=== PATIENT | male | born 1940 | race Caucasian/White ===

== ENCOUNTER 2017-10-05 09:40 | Emergency (ER) | payer MEDICARE, BC ==
[~2017-10-05] VITALS: Ht 177.8 cm; Wt 91.6 kg
[~2017-10-05 09:40] MED LIST: ASPIRIN EC81 MG PO; AUGMENTIN 500-1 EACH PO; BYSTOLIC10 MG PO; GABAPENTIN300 MG PO; GABAPENTIN800 MG PO; GLIMEPIRIDE2 MG PO; HYDROCHLOROTH12.5 M1 PO; LEVOXYL200 MCG PO; LOSARTAN POTASS25 MG PO; METFORMIN HCL500 MG PO; ONGLYZA5 MG PO; PHENERGAN25 MG/1 ML PO; TYLENOL WITH C1 EACH PO
--- NOTE | 2017-10-05 12:12 | Diagnostic Imaging Report ---
History: Neck pain radiating down to shoulder Comparison studies: MRI of the cervical spine 03/28/2014 Technique: Axial images were obtained through the cervical region. Coronal and sagittal images reconstructed from the axial data. Intravenous contrast: None Findings: Atlantoaxial articulation: Intact Alignment: Straightening of the normal lordosis. No scoliosis. Cervicomedullary junction: No abnormalities. Patent foramen magnum. Soft tissues: No gross abnormalities. Vertebrae: No fractures, neoplasm or infection. Degenerative changes: C2-C3: Disc degeneration with decreased intervertebral space. Posterior disc osteophyte complex with patent canal and foramina C3-C4: Disc degeneration with decreased intervertebral space, endplate irregularities and sclerotic changes. Diffuse posterior disc osteophyte complex and bilateral uncinate process hypertrophy results in mild canal stenosis, mild right and moderate left foraminal narrowing C4-C5: Disc degeneration with decreased intervertebral space. Bilateral uncinate process hypertrophy and right facet hypertrophy results in mild canal stenosis and mild right foraminal narrowing C5-C6: Disc degeneration with decreased intervertebral space and sclerotic changes. Diffuse disc osteophyte complex, bilateral uncinate process hypertrophy and facet hypertrophy results in moderate canal stenosis and severe bilateral foraminal narrowing C6-C7: Disc degeneration with decreased intervertebral space and endplate sclerotic changes. Right central disc osteophyte complex, bilateral cerebral hypertrophy and facet hypertrophy results in mild canal stenosis and mild bilateral foraminal narrowing C7-T1: Patent canal and foramina Incidental finding: Atherosclerotic changes of the carotid bulbs IMPRESSION: No acute spinal abnormality. Moderate degenerative canal stenosis and severe bilateral foraminal narrowing at C5-6, stable from previous MR accounting for differences in technique. Moderate degenerative foraminal narrowing at C3-4 on the left. Mild foraminal narrowing at other levels as described above. Other degenerative changes as described above. Signed by: DR Juan Ham M.D. on 10/05/2017 12:09 PM
[2017-10-05 12:27] VITALS: BP 153/98
[2017-10-05] MEDS ORDERED: ULTRAM50 MG PO (12:41)
== END 2017-10-05 12:52 | disposition home or self-care (01) ==
LOC: ER 09:40
DX: M54.2 Cervicalgia (principal); S13.4XXA Sprain of ligaments of cervical spine, initial encounter; M54.12 Radiculopathy, cervical region; M48.02 Spinal stenosis, cervical region
CPT/HCPCS: 72125; 99283

== ENCOUNTER 2017-11-02 06:25 | Observation (INO) | payer MEDICARE, BC ==
[2017-11-01 10:44] LABS: BASOPHILS % 0.6 % (0.0-1.0); EOSINOPHILS # (AUTO) 0.1 (0.0-0.4); EOSINOPHILS % 2.1 % (0.0-6.0); HEMATOCRIT 42.3 % (38.2-49.6); LYMPHOCYTES # (AUTO) 1.8 (1.0-3.2); LYMPHOCYTES % 27.1 % (18.0-39.1); MEAN CORPUSCULAR HGB CONC 33.1 g/dL (31-35); MEAN CORPUSCULAR VOLUME 84.6 fL (81-99); MONOCYTES # (AUTO) 0.4 (0.2-0.8); MONOCYTES % 5.8 % (4.4-11.3); NEUTROPHILS # (AUTO) 4.2 (2.1-6.9); NEUTROPHILS % 63.6 % (38.7-80.0); PLATELET COUNT 170 x10e3/uL (140-360); RED CELL DISTRIBUTION WIDTH 12.8 % (11.7-14.4)
[2017-11-01 10:54] LABS: INR 1.2; PARTIAL THROMBOPLASTIN TIME 28.4 seconds (23.8-35.5); PROTHROMBIN TIME 14.3 seconds (11.9-14.5)
[2017-11-01 11:00] LABS: ANION GAP 13.4 mmol/L (8-16); BLOOD UREA NITROGEN 13 mg/dL (7-26); BUN/CREATININE RATIO 13 (6-25); CALCIUM 9.3 mg/dL (8.4-10.2); CARBON DIOXIDE 25 mmol/L (22-29); CHLORIDE 98 mmol/L (98-107); EST GLOMERULAR FILTRATION RATE > 60 ML/MIN (60-); GLUCOSE 242 mg/dL (74-118); POTASSIUM 4.4 mmol/L (3.5-5.1); SODIUM 132 mmol/L (136-145)
--- NOTE | 2017-11-01 11:01 | Diagnostic Imaging Report ---
PROCEDURE: X-RAY CHEST, TWO VIEWS COMPARISON: The report for a chest radiograph from 07/28/2015 is available for review.. INDICATIONS: PREOPERATIVE CHEST XRAY FOR CERVICAL SPINE SURGERY FINDINGS: The lungs are well-inflated. Calcified granulomata in the upper lung zones. No focal airspace consolidation, pleural effusion, or pneumothorax. Tortuous thoracic aorta with rightward tracheal deviation. Normal heart size. No overt pulmonary edema. No acute osseous abnormality. Level degenerative disc changes of the thoracic spine. Surgical clips project over the right upper quadrant of the abdomen, presumably related to prior cholecystectomy. CONCLUSION: No acute cardiopulmonary abnormality. Dictated by: Davide Patterson M.D. on 11/01/2017 at 11:08 Electronically approved by: Davide Patterson M.D. on 11/01/2017 at 11:08
[~2017-11-02] VITALS: Ht 177.8 cm; Wt 93.0 kg
[~2017-11-02 06:25] MED LIST changes: +Gabapentin PO; +LOSARTAN-HCTZ1 EACH; +MULTI-VITAMIN1 EACH; +NEXIUM; +ULTRAM50 MG PO
[2017-11-02] MEDS ORDERED: BACITRACIN 50,000 UNIT VIAL ONE (06:37)
[2017-11-02] MEDS ORDERED: BUPIVACAINE 0.5%/EPI 30 ML SDV INJ ONE (06:37)
[2017-11-02] MEDS ORDERED: THROMBIN FOR SOLN 5,000 UNIT VIAL ONE (06:37)
[2017-11-02] MEDS ORDERED: GELATIN SPONGE SZ 100 ONE (06:37)
[2017-11-02] MEDS ORDERED: CEFAZOLIN SOD 1 GM VIAL ONE (06:59)
[2017-11-02] MEDS ORDERED: INSULIN REGULAR, HUMAN 100 UNIT/1 ML 3ML VIAL ONE ×2 (07:13→11:24)
[2017-11-02] MEDS ORDERED: ACETAMINOPHEN 1000 MG/100 ML 100 ML IV ONE (07:23)
[2017-11-02] MEDS ORDERED: LIDOCAINE HCL (LTA) 4 ML SOLN ONE (07:23)
[2017-11-02] MEDS ORDERED: ONDANSETRON HCL INJ 2 MG/ML VIAL IV PRN (10:00)
[2017-11-02] MEDS ORDERED: MORPHINE SULFATE 5 MG/ML VIAL IM PRN (10:00)
[2017-11-02] MEDS ORDERED: CARISOPRODOL 350 MG TAB PO PRN (10:00)
[2017-11-02] MEDS ORDERED: OXYCODONE/ACETAMINOPHEN 5-325 1 EACH TABLET PO PRN (10:00)
[2017-11-02] MEDS ORDERED: HYDROMORPHONE 2MG/ML 2 MG/ML ML IV PRN (10:00)
[2017-11-02] MEDS ORDERED: MAGNESIUM/ALUMINUM/SIMETHICONE 30 ML UDC PO PRN (10:00)
[2017-11-02] MEDS ORDERED: PROMETHAZINE HCL (IM) 25 MG/ML VIAL IM PRN (10:00)
[2017-11-02] MEDS ORDERED: ACETAMINOPHEN 325 MG TAB PO PRN (10:00)
--- NOTE | 2017-11-02 10:29 | Operative Report ---
DATE OF PROCEDURE: November 02, 2017 PREOPERATIVE DIAGNOSIS: C4-C5 and C5-C6 spondylosis with radiculopathy, M50.120. POSTOPERATIVE DIAGNOSIS: C4-C5 and C5-C6 spondylosis with radiculopathy, M50.120. PROCEDURES 1. C4-C5 anterior cervical diskectomy and microsurgical osteophyte resection and allograft fusion . 2. C5-C6 anterior cervical diskectomy and microsurgical osteophyte resection and allograft fusion, . 3. Preparation of tricortical iliac crest allograft, [id number]. 4. C4-C5 and C5-C6 anterior cervical plating with Synthes CSP plate, [id number]. ANESTHESIA: General. INDICATIONS: The patient is a 77-year-old man who presents with C4-C5 and C5-C6 spondylosis and cervical spinal stenosis, and was taken to the operating room for a 2-level anterior cervical decompression and fusion. PROCEDURE: After induction of anesthesia, the patient was placed on the operating table in the supine position. The right side of the neck was prepped and draped in a sterile fashion. The fluoroscopic C-arm was positioned in cross-table lateral orientation. A transverse incision was created on the right side of the neck superimposed on the C5 vertebral body as determined by fluoroscopy. The platysma was divided in line with the incision. A subplatysmal dissection was carried out. An avascular plane of dissection was developed. The sternocleidomastoid muscle was followed medial to the carotid sheath to the anterior border of the cervical spine. The deep cervical fascia was opened. The esophagus was retracted to the left. The attachments of the longus coli muscles to the anterolateral aspects of vertebral bodies of C4, C5 and C6 were divided. The anterior longitudinal ligament was resected. Carson posts were inserted into C4 and C6, and the Carson distractor was used to distract the disk space. The anterior annulus of the disk was incised with a #11 blade, and the contents of the disk were thoroughly evacuated with angled curettes and pituitary rongeurs. The posterior osteophytes were meticulously drilled with a 2 mm cutting bur on a high-speed drill until they were completely removed. The posterior annulus of the disk, herniated disk material and the posterior longitudinal ligament were resected layer by layer until the dura was fully exposed and decompressed. The medial aspects of the uncinate processes were resected bilaterally to further expose and decompress the origins of the corresponding nerve roots. After satisfactory decompression had been achieved, the end-plates were prepared for fusion. Two pieces of tricortical iliac crest allograft were cut to size and shapes of the disk spaces and were inserted into the spaces under distraction of fluoroscopic guidance. The distraction was released. The distraction posts were removed. A Synthes CSP variable type anterior cervical plate measuring 34 mm in height was selected and affixed to the vertebral bodies of C4, C5 and C6 with 3 pairs of 14 x 4.35 mm screws. Each screw hole was first drilled and tapped under lateral fluoroscopic guidance. Each screw was locked with the appropriate locking screws. An excellent construct was obtained. The wound was copiously irrigated with Bacitracin solution. Meticulous hemostasis was secured. Retractor was removed. The platysma was closed with 3-0 Vicryl sutures. The skin was closed with 4-0 Monocryl sutures in a subcuticular fashion. Steri-Strips and a dressing were applied. The patient was awakened, extubated and taken to the postanesthesia care unit in stable condition. No intraoperative complications were encountered. Estimated blood loss was 30 mL. Job#: [id number] KARLIE
[2017-11-02] MEDS ORDERED: FENTANYL CITRATE/PF 100MCG/2 ML INJ ONE ×2 (10:35→19:18)
[2017-11-02] MEDS ORDERED: ONDANSETRON HCL INJ 2 MG/ML VIAL ONE ×2 (10:52→16:17)
[2017-11-02] MEDS ORDERED: METOCLOPRAMIDE HCL 10 MG/2ML VIAL ONE (11:14)
[2017-11-02] MEDS ORDERED: MORPHINE SULFATE 2 MG/ML SYR ONE ×2 (11:14→12:20)
[2017-11-02] MEDS: LACTATED RINGER'S 1,000 ML IV SCH ×3 (11:33→22:43)
[2017-11-02 13:00] VITALS: BP_SYST 156; BP_SYST 167; BP_DIAS 85; BP_DIAS 91
[2017-11-02 13:13] VITALS: BP 167/85
[2017-11-02] MEDS ORDERED: CEFAZOLIN SOD 1 GM/D5W 50ML 50 ML IV SCH (14:00)
[2017-11-02] MEDS ORDERED: SEVOFLURANE INHAL SOLN 250 ML PEN BTL ONE (16:17)
[2017-11-02] MEDS ORDERED: ROCURONIUM BROMIDE 10 MG/ML 5ML VIAL ONE (16:17)
[2017-11-02] MEDS ORDERED: PROPOFOL IV EMULSION 10 MG/ML 20 ML VIAL ONE (16:17)
[2017-11-02] MEDS ORDERED: LIDOCAINE HCL 2% LOCAL INJ 5 ML SDV VIAL INJ ONE (16:17)
[2017-11-02] MEDS ORDERED: DEXAMETHASONE SOD PHOS INJ 4 MG/ML VIAL ONE (16:17)
[2017-11-02] MEDS ORDERED: NEOSTIGMINE 5 MG/5ML SYR ONE (16:17)
[2017-11-02] MEDS ORDERED: GLYCOPYRROLATE INJ 1MG/ 5 ML SYR ONE (16:17)
[2017-11-02 16:42] VITALS: BP 162/86
[2017-11-02] MEDS ORDERED: GABAPENTIN 200 MG PO SCH (17:00)
[2017-11-02] MEDS ORDERED: OMEPRAZOLE 20 MG CAP PO SCH (17:00)
[2017-11-02] MEDS: GLIMEPIRIDE 2 MG TAB PO SCH (17:45)
[2017-11-02] MEDS: METFORMIN HCL 500 MG TAB PO SCH (17:45)
[2017-11-02] MEDS: CEFAZOLIN SOD 1 GM VIAL IV SCH ×2 (17:45→23:47)
[2017-11-02] MEDS: PANTOPRAZOLE SOD 40 MG TABEC PO SCH (17:45)
[2017-11-02] MEDS: GABAPENTIN 100 MG CAP PO SCH (17:46)
[2017-11-02] MEDS: LOSARTAN POTASSIUM 100 MG TAB PO SCH (17:46)
[2017-11-02 20:00] VITALS: BP 164/89
[2017-11-02] MEDS ORDERED: ZOLPIDEM TARTRATE 5 MG TAB PO PRN (21:00)
[2017-11-03] VITALS: BP 142/82
[2017-11-03 00:11] VITALS: BP 164/89
[2017-11-03 04:00] VITALS: BP 154/86
--- NOTE | 2017-11-03 05:58 | Diagnostic Imaging Report ---
C-SPINE 2 VIEWS AP LATERAL Comparison: CT from 10/05/2017 Clinical history: Status post cervical spine surgery Findings: C-collar is in place. Visualization through C6 on lateral view. Straightening of the normal cervical lordosis with slight reversal at C2-C4, unchanged. Status post interval C4-C6 ACDF. Degenerative changes worse at C3-4. Expected prevertebral soft tissue swelling status post recent surgery. Impression: Postsurgical changes status post C4-6 ACDF. Signed by: Dr Lupe Lane MD on 11/03/2017 5:55 AM
[2017-11-03] MEDS ORDERED: LEVOTHYROXINE SODIUM 100 MCG TAB PO SCH (06:00)
[2017-11-03 07:20] VITALS: BP 160/97
[2017-11-03] MEDS: CEFAZOLIN SOD 1 GM VIAL IV SCH (07:50)
[2017-11-03] MEDS: METFORMIN HCL 500 MG TAB PO SCH (07:50)
[2017-11-03] MEDS: PANTOPRAZOLE SOD 40 MG TABEC PO SCH (07:50)
[2017-11-03] MEDS: GLIMEPIRIDE 2 MG TAB PO SCH (07:50)
[2017-11-03 08:50] VITALS: BP 160/97
[2017-11-03] MEDS: GABAPENTIN 100 MG CAP PO SCH (08:50)
[2017-11-03] MEDS: LOSARTAN POTASSIUM 100 MG TAB PO SCH (08:50)
[2017-11-03] MEDS ORDERED: NEBIVOLOL 10 MG TAB PO SCH (09:00)
[2017-11-03] MEDS ORDERED: MULTIVITAMINS/MINERALS TAB PO SCH (09:00)
[2017-11-03] MEDS ORDERED: LEVOTHYROXINE SODIUM 200 MCG PO SCH (09:00)
[2017-11-03] MEDS ORDERED: NORCO 7.5-3251 EACH PO (09:41)
[2017-11-03 10:10] VITALS: BP 157/94
== END 2017-11-03 10:15 | disposition home or self-care (01) ==
LOC: OR 06:25 → PACU V 09:50 → MED/SURG 12:58
PROVIDERS: ADMIT Neurological Surgery; ATTEND Neurological Surgery
DX: M50.121 Cervical disc disorder at C4-C5 level with radiculopathy (principal); E11.9 Type 2 diabetes mellitus without complications; E03.9 Hypothyroidism, unspecified; I10 Essential (primary) hypertension; R12 Heartburn; Z96.643 Presence of artificial hip joint, bilateral; Z96.651 Presence of right artificial knee joint; Z88.7 Allergy status to serum and vaccine; Z01.810 Encounter for preprocedural cardiovascular examination; Z01.812 Encounter for preprocedural laboratory examination; Z01.811 Encounter for preprocedural respiratory examination
CPT/HCPCS: 20931; 22551; 22552; 22845; 36415 ×3; 71046; 72040; 77003; 80048; 82948 ×2; 85025; 85610; 85730; 86850; 86900; 88304; 93005; 96361; G0378 ×2; J0690 ×2; J1100; J2001; J2270; J2405; J2550; J2765; J3490; J7120; S0164 ×2

== ENCOUNTER 2018-06-24 07:50 | Emergency (ER) | payer MEDICARE, BC ==
[~2018-06-24] VITALS: Ht 177.8 cm; Wt 86.2 kg
[~2018-06-24 07:50] MED LIST changes: +NORCO 7.5-3251 EACH PO
--- OUTSIDE RECORDS SUMMARY | 2018-06-24 07:54 | XMS REPORT | Clinical Summary ---
Author Author [facility] Organization [facility] Address Unknown Phone Unavailable Care Team Providers Care Clinical Exercise Physiologist Name Role Phone Asked, No Pcp PCP Unavailable Allergies No Known Allergies Medications End Date Status Medication Sig Dispensed Refills Start Date Active glimepiride (AMARYL) 2 MG Take 2 mg by 0 tablet mouth daily before breakfast. Active levothyroxine (SYNTHROID, Take 200 mcg 0 LEVOXYL) 200 mcg tablet by mouth every morning. Active losartan-hydrochlorothiaz Take 1 tablet 0 tish (HYZAAR) 50-12.5 mg by mouth per tablet daily. Active metFORMIN (GLUCOPHAGE) Take 1,000 mg 0 1,000 mg tablet by mouth 2 (two) times a day with meals. Active aspirin (ECOTRIN LOW Take 81 mg by 0 STRENGTH) 81 MG enteric mouth daily. coated tablet Active esomeprazole (NexIUM) 20 Take 20 mg by 0 MG capsule mouth daily before breakfast. Active nebivolol (BYSTOLIC) 5 MG Take 5 mg by 0 tablet mouth daily. Active gabapentin (NEURONTIN) Take 100 mg 0 100 mg capsule by mouth 3 (three) times a day. Active nctrm-3m-dfd-epa-fish oil Take by 0 1,000-1,400 mg mouth. capsule,delayed release(DR/EC) Active MULTIVIT-MINERALS/FERROUS Take by 0 FUM (MULTI VITAMIN ORAL) mouth. Active meloxicam (MOBIC) 15 mg Take 1 tablet 30 tablet 0 tablet (15 mg total) 7 by mouth daily. Active diclofenac (VOLTAREN) 1 % Apply 500 g 1 gel topically 4 9 (four) times a day. Apply 1-2 grams to affected area 3-4 times daily. Active Problems Not on file Encounters Care Team Description Date Type Specialty Eric Galeana PA Stress fracture of left foot with routine healing, subsequent encounter (Primary Dx); Osteoarthritis of midfoot, left 04/20/2018 Office Visit Orthopedic Surgery Eric Galeana PA Stress fracture of left foot with routine healing, subsequent encounter (Primary Dx); Osteoarthritis of midfoot, left; Type 2 diabetes mellitus without complication, unspecified long-term insulin use status 10/17/2017 Office Visit Orthopedic Surgery after 06/23/2017 Family History Medical History Relation Name Comments Diabetes Mother Relation Name Status Comments Mother Social History Date Tobacco Use Types Packs/Day Years Used Quit: 07/12/1986 Former Smoker Smokeless Tobacco: Never Used Alcohol Use Drinks/Week oz/Week Comments No Sex Assigned at Date Recorded Not on file Industry Job Start Date Occupation Not on file Not on file Not on file Travel End Travel History Travel Start No recent travel history available. Last Filed Vital Signs Not on file Plan of Treatment Care Team Description Date Type Specialty Eric Galeana PA [address] [place] [address] [place] [id number] [phone] 07/19/2018 Office Visit Orthopedic Surgery Health Maintenance Due Date Last Done Comments DIABETIC RETINAL EYE EXAM 1940 DIABETIC FOOT EXAM 05/23/1949 URINE MICROALBUMIN 05/23/1949 SHINGLES VACCINES (#1) 05/23/1989 65+ PNEUMOCOCCAL VACCINE 05/23/2004 (1 of 2 - PCV13) PNEUMOCOCCAL 05/23/2004 POLYSACCHARIDE VACCINE AGE 65 AND OVER INFLUENZA VACCINE 09/27/2018 Procedures Comments Procedure Name Priority Date/Time Associated Diagnosis XR FOOT 3+ VW LEFT Routine 04/20/2018 Stress fracture of left 11:10 AM IP ARCHITECT foot with routine healing, subsequent encounter Osteoarthritis of midfoot, left XR FOOT 3+ VW LEFT Routine 10/17/2017 Stress fracture of left 9:49 AM CDT foot with routine healing, subsequent encounter after 06/23/2017 Results * XR Foot 3+ Vw Left (04/20/2018 11:10 AM IP ARCHITECT) Only the most recent of 2 results within the time period is included. Narrative Performed At [facility] There is been a bit more cystic change along the navicular cuneiform joints and TMT joints.Some progressive forefoot abduction and lateral drift of the midfoot noted on the AP view compared to his last films. Along the longitudinal arch there is a bit more flattening noted.No acute fractures. Performing Organization Address City/State/Zipcode Phone Number [facility] [address] [place] [address] after 06/23/2017 Insurance Payer Benefit Subscriber ID Type Phone Address Plan / Group MEDICARE MEDICARE xxxxxxxxxx Medicare [place], [place] PART A AND B BCBS ANTHEM xxxxxxxxxxxx [facility] Advance Directives Patient has advance care planning documents on file. For more information, raisa mejia contact: Yasmani Alcantar [address] [place] [address]
[2018-06-24] MEDS ORDERED: VALACYCLOVIR500 MG PO (08:42)
[2018-06-24] MEDS ORDERED: PREDNISONE20 MG PO (08:42)
[2018-06-24] MEDS ORDERED: EYE DROP TEARS15 ML OP (08:44)
[2018-06-24 08:53] VITALS: BP 123/99
== END 2018-06-24 09:08 | disposition home or self-care (01) ==
LOC: ER 07:50
DX: G51.0 Bell's palsy (principal)
CPT/HCPCS: 99282

== ENCOUNTER 2018-12-12 19:57 | Inpatient (IN) | payer MEDICARE, BC ==
[~2018-12-12] VITALS: Ht 177.8 cm; Wt 88.0 kg
[~2018-12-12 19:57] MED LIST changes: +EYE DROP TEARS15 ML OP; -NEXIUM; +NEXIUM PO; +PREDNISONE20 MG PO; +VALACYCLOVIR500 MG PO
[2018-12-12] MEDS ORDERED: ACETAMINOPHEN 1000 MG/100 ML IV STA (20:03)
[2018-12-12] MEDS ORDERED: ONDANSETRON HCL INJ 2MG/ML 2ML 2 MG/ML VIAL IV STA (20:03)
[2018-12-12] MEDS ORDERED: ASPIRIN 81 MG CHEW TAB PO ONE (20:15)
[2018-12-12 20:20] LABS: BASOPHILS # (AUTO) 0.1 (0.0-0.1); BASOPHILS % 0.5 % (0.0-1.0); EOSINOPHILS # (AUTO) 0.3 (0.0-0.4); EOSINOPHILS % 1.9 % (0.0-6.0); HEMATOCRIT 36.5 % (38.2-49.6); HEMOGLOBIN 11.8 g/dL (14.0-18.0); LYMPHOCYTES # (AUTO) 1.2 (1.0-3.2); LYMPHOCYTES % 8.7 % (18.0-39.1); MEAN CORPUSCULAR HEMOGLOBIN 26.6 pg (28-32); MEAN CORPUSCULAR HGB CONC 32.3 g/dL (31-35); MEAN CORPUSCULAR VOLUME 82.4 fL (81-99); MONOCYTES # (AUTO) 0.6 (0.2-0.8); MONOCYTES % 4.2 % (4.4-11.3); NEUTROPHILS # (AUTO) 11.6 (2.1-6.9); NEUTROPHILS % 83.8 % (38.7-80.0); PLATELET COUNT 386 x10e3/uL (140-360); RED BLOOD COUNT 4.43 x10e6/uL (4.3-5.7); RED CELL DISTRIBUTION WIDTH 14.4 % (11.7-14.4)
[2018-12-12 20:38] LABS: ALANINE AMINOTRANSFERASE 15 IU/L (0-55); ALBUMIN 3.3 g/dL (3.5-5.0); ALKALINE PHOSPHATASE 102 IU/L (40-150); ANION GAP 14.1 mmol/L (8-16); BLOOD UREA NITROGEN 15 mg/dL (7-26); BUN/CREATININE RATIO 16 (6-25); CALCIUM 9.9 mg/dL (8.4-10.2); CARBON DIOXIDE 23 mmol/L (22-29); CHLORIDE 100 mmol/L (98-107); CREATINE KINASE 56 IU/L (30-200); CREATININE, SERUM 0.94 mg/dL (0.72-1.25); EST GLOMERULAR FILTRATION RATE > 60 ML/MIN (60-); GLUCOSE 155 mg/dL (74-118); POTASSIUM 4.1 mmol/L (3.5-5.1); SODIUM 133 mmol/L (136-145)
[2018-12-12 20:43] LABS: INFLUENZAE A&B ANTIGEN (RAPID) NEGATIVE (NEGATIVE); STREPTOCOCCUS GRP A ANTIGEN NEGATIVE (NEGATIVE)
[2018-12-12 20:45] LABS: B-TYPE NATRIURETIC PEPTIDE2 137.2 pg/mL (0-100)
[2018-12-12] MEDS ORDERED: SODIUM CHLORIDE 0.9% 50ML 50 ML ONE (21:35)
[2018-12-12] MEDS ORDERED: IOPAMIDOL 370 MG/ML 200 ML INFUS..BTL INJ ONE (21:35)
--- NOTE | 2018-12-12 21:39 | Diagnostic Imaging Report ---
EXAMINATION: CHEST SINGLE (PORTABLE) INDICATION: ^dyspnea ^[id number] ^2100 COMPARISON: 11/01/2017 FINDINGS: AP view TUBES and LINES: None. LUNGS: Limited by low volumes and body habitus. Mild vascular congestion and interstitial edema. PLEURA: No pneumothorax. Small left pleural effusion. HEART AND MEDIASTINUM: The cardiomediastinal silhouette is prominent on this AP view. Median sternotomy wires. BONES AND SOFT TISSUES: No acute osseous lesion. Soft tissues are unremarkable. UPPER ABDOMEN: No free air under the diaphragm. IMPRESSION: Mild vascular congestion and interstitial edema. Small left pleural effusion. Signed by: Dr. Baldo Foote MD on 12/12/2018 9:36 PM
[2018-12-12 21:42] LABS: BILIRUBIN,URINE NEGATIVE (NEGATIVE); CLARITY,URINE SL CLOUDY (CLEAR); COLOR,URINE YELLOW (YELLOW); KETONES,URINE NEGATIVE (NEGATIVE); LEUKOCYTE ESTERASE ,URINE NEGATIVE (NEGATIVE); NITRITE,URINE NEGATIVE (NEGATIVE); PROTEIN,URINE DIPSTICK TRACE (NEGATIVE); URINE UROBILINOGEN 1 mg/dL (0.2 - 1)
--- NOTE | 2018-12-12 21:52 | Diagnostic Imaging Report ---
EXAM: CT Chest WITH contrast (PE Protocol) INDICATION: ^sob ^[id number] ^2114 COMPARISON: Same day radiograph. TECHNIQUE: Chest was scanned utilizing a multidetector helical scanner from the lung apex through the level of the diaphragm after administration of IV contrast. Thin section reconstructions were obtained with special concentration on the pulmonary arteries. Coronal and sagittal reformations were obtained. Dose modulation, iterative reconstruction, and/or weight based adjustment of the mA/kV was utilized to reduce the radiation dose to as low as reasonably achievable. Pulmonary embolism protocol was performed. IV CONTRAST: 100 mL of Isovue-370 COMPLICATIONS: None RADIATION DOSE: Total DLP: 545.07 mGy*cm Estimated effective dose: (DLP x 0.014 x size factor) mSv CTDIvol has been reviewed. It is below the limits set by the Radiation Protocol Committee (RPC). FINDINGS: LINES/ TUBES: None. LUNGS AND AIRWAYS: Respiratory motion limits evaluation. No filling defect is identified within the pulmonary arteries to the segmental level. Pulmonary vascular congestion. Airways are normal. PLEURA: Scattered calcified pleural plaques are visualized. No pneumothorax. Moderate left and small right pleural effusions with adjacent compressive atelectasis. HEART AND MEDIASTINUM: The thyroid gland is normal. No mediastinal, hilar or axillary lymphadenopathy. The heart is normal in size. Trace pericardial effusion. . Main pulmonary artery measures 3.6 cm in diameter and the ascending aorta measures 4 cm. Coronary artery calcifications. Changes of recent bypass surgery and aortic valve replacement. Median sternotomy wires and mediastinal surgical clips. UPPER ABDOMEN: Cholecystectomy. BONES: Degenerative changes of thoracic spine. T11 superior endplate central compression, likely degenerative. Partially seen anterior cervical spine fusion hardware. SOFT TISSUES: Unremarkable. IMPRESSION: No pulmonary emboli. Pulmonary vascular congestion. Moderate left and small right pleural effusions with adjacent compressive atelectasis. Mediastinal changes of CABG surgery and aortic valve replacement. Scattered calcified pleural plaques, suggestive of prior asbestos exposure. Signed by: Dr. Baldo Foote MD on 12/12/2018 9:48 PM
[2018-12-12 21:53] LABS: BACTERIA,URINE FEW /HPF; EPITHELIAL CELLS,URINE MODERATE /LPF; MUCUS,URINE FEW (RARE)
[2018-12-12] MEDS ORDERED: LEVOFLOXACIN 750MG/D5W 150ML 150 ML IV STA (22:29)
[2018-12-12] MEDS ORDERED: ONDANSETRON HCL INJ 2MG/ML 2ML 2 MG/ML VIAL IV PRN (22:45)
[2018-12-12] MEDS ORDERED: LEVOFLOXACIN 750MG/D5W 150ML 150 ML IV ONE (22:58)
--- NOTE | 2018-12-12 23:00 | NUR ---
CHECKED PT'S LOWER RT THIGH DRESSING - DRESSING NOW SATURATED AND SLIGHT YELLOW DRAINAGE NOTED IN DRESSING; REDNESS/WARMTH NOW NOTED TO SITE - ER MD AWARE AND IN ROOM TO EVALUATE
[2018-12-12] MEDS ORDERED: VANCOMYCIN 1GM/NS 250 ML 250 ML IV STA (23:02)
--- NOTE | 2018-12-12 23:15 | NUR ---
TRANSFER INITIATED TO [facility]
[2018-12-13] MEDS ORDERED: DEXTROSE 50% SYRINGE 50 ML IV PRN (01:00)
[2018-12-13] MEDS: SODIUM CHLORIDE 0.9% 1000ML 1,000 ML IV SCH ×4 (01:00→23:30)
[2018-12-13] MEDS ORDERED: VANCOMYCIN 1GM/NS 250 ML 250 ML ONE (02:23)
--- NOTE | 2018-12-13 04:00 | NUR ---
DRESSINHG CHANGED TO SURGICAL SITE TO RIGHT THIGH, CLEAR/YELLOW DRAINAGE NOTED
[2018-12-13] MEDS ORDERED: BACITRACIN ZINC 0.9GM TP ONE (04:41)
[2018-12-13] MEDS: ACETAMINOPHEN 325 MG TAB PO PRN ×2 (05:51→17:52)
[2018-12-13 05:58] LABS: CREATINE KINASE MB 2.2 ng/mL (0-5.0)
--- NOTE | 2018-12-13 07:01 | NUR ---
REPORT AND CARE OF PT GIVEN TO MAKENNA QUEVEDO
[2018-12-13] MEDS ORDERED: PANTOPRAZOLE SOD 40 MG TABEC PO SCH (07:30)
[2018-12-13] MEDS: INSULIN LISPRO 100 UNIT/1 ML 3ML VIAL SQ SCH ×5 (07:56→21:00)
[2018-12-13] MEDS ORDERED: LEVOTHYROXINE SODIUM 100 MCG TAB PO SCH (08:00)
[2018-12-13] MEDS ORDERED: GABAPENTIN 200 MG PO SCH (09:00)
[2018-12-13] MEDS ORDERED: LOSARTAN POTASSIUM 100 MG TAB PO SCH (09:00)
[2018-12-13] MEDS ORDERED: GABAPENTIN 100 MG CAP PO SCH (09:00)
[2018-12-13] MEDS ORDERED: LEVOTHYROXINE SODIUM 200 MCG PO SCH (09:00)
[2018-12-13] MEDS ORDERED: NEBIVOLOL 10 MG TAB PO SCH (09:00)
[2018-12-13] MEDS ORDERED: HYDROCODONE/APAP 7.5MG-325MG 1 EA TAB PO SCH (10:00)
--- NOTE | 2018-12-13 11:53 | Consultation ---
DATE OF CONSULTATION: REASON FOR CONSULTATION: Seroma, right thigh, status post CABG and aortic valve replacement. HISTORY OF PRESENT ILLNESS: The patient is a 78-year-old male, who underwent on November 2018, CABG and aortic valve replacement by Dr. Moe, who now is being admitted to the hospital with swelling and pain of the right thigh. We have been asked to evaluate the patient for possible drainage of a seroma of the right thigh. PHYSICAL EXAMINATION: GENERAL: Reveals a 78-year-old male in no acute distress. VITAL SIGNS: He is afebrile with stable vital signs. EXTREMITIES: Reveals some erythema and induration on the right medial thigh at the site of right saphenous vein harvest from previous cardiac procedure. At this point, I am unable to palpate any fluctuance. I do not detect any major amount of fluid in the right thigh and right saphenous vein harvest site. There is some erythema along with induration. US of the right lower extremity reveals a fluid collection 4 cms by 1 cm in the right thigh which is to be expected over the site of the saphenous vein harvest . ASSESSMENT AND PLAN: 1. Cellulitis of the right thigh at the previous right saphenous vein harvest location. 2.Small post op xeroma as expected. 2. At this point, there is no need for surgical intervention. The patient has been seen by Infectious Disease, who is in charge of his antibiotics. Dr. Moe will be notified. We will be on stand by in case surgical intervention is needed. Thank you very much. MD ROSALINA Cotton/JOSE ELIAS /[id number] ASHLEY
[2018-12-13] MEDS: VANCOMYCIN 1GM/NS 250 ML 250 ML IV SCH ×2 (12:07→23:30)
--- NOTE | 2018-12-13 12:50 | Diagnostic Imaging Report ---
EXAM: Focused Soft Tissue Ultrasound Evaluation of right lower extremity INDICATION: ^[id number] ^1149 ^RT LEG SOFT TISSUE R/O ABSCESS COMPARISON: None TECHNIQUE: Montague scale, color Doppler images of right lower extremity were obtained. FINDINGS: Focused sonographic evaluation of the right lower extremity in the area of clinical concern demonstrates a linear area of focal fluid measuring approximately 4 x 1 cm. The fluid interdigitates between subcutaneous soft tissue planes and there is no associated thickened wall or peripheral vascularity. IMPRESSION: Linear subcutaneous fluid, likely postoperative seroma. Signed by: Amelia Mahan MD on 12/13/2018 12:47 PM
[2018-12-13] MEDS ORDERED: CEFEPIME 1GM/NS 0.9% 50 ML 50 ML IV SCH (14:00)
--- NOTE | 2018-12-13 14:15 | NUR ---
RECEIVED PT FROM ER. ORIENTATED TO FLOOR AND ROOM. DENIES PAIN AT THIS TIME. AT BEDSID
[2018-12-13 14:42] LABS: CREATINE KINASE MB 2.2 ng/mL (0-5.0)
[2018-12-13 15:04] VITALS: BP 127/76
[2018-12-13] MEDS ORDERED: METOPROLOL TART50 MG PO (15:42)
[2018-12-13] MEDS ORDERED: LIPITOR20 MG PO (15:42)
[2018-12-13] MEDS ORDERED: LANTUS 3ML100 UNITS/ SQ (15:42)
[2018-12-13] MEDS ORDERED: HUMALOG100 UNIT/1 SQ (15:42)
[2018-12-13] MEDS ORDERED: ASPIRIN325 MG PO (15:42)
[2018-12-13 15:46] VITALS: BP 127/76
[2018-12-13] MEDS ORDERED: NON-FORMULARY MEDICATION (Insulin Lispro (Humalog) 10 UNITS) SQ SCH (16:30)
[2018-12-13] MEDS: METOPROLOL TARTRATE 50 MG TAB PO SCH (17:00)
[2018-12-13] MEDS: HYDROCODONE/APAP 7.5MG-325MG 1 EA TAB PO SCH ×2 (17:34→21:25)
--- NOTE | 2018-12-13 17:50 | Consultation ---
DATE OF CONSULTATION: Cardiac Consultation HISTORY OF PRESENT ILLNESS: A 78-year-old gentleman, who is known to me with severe critical aortic stenosis, two-vessel coronary artery disease, diabetes mellitus, hypertension, degenerative joint disease, and abnormal gait. He had his cardiac catheterization on November 16, 2018, confirming disease of LAD, right coronary artery with preserved left ventricular systolic function and severe aortic stenosis. He went to [facility] where he had his aortic valve replacement and two-vessel bypass on November 29, 2018. He was dismissed home on December 04, 2018. Following the procedure, he had a drainage in his right thigh, which was removed. The patient started having fever, chills, and severe drainage from his right midthigh site of vein harvesting. He went to [facility]. He was examined and he was dismissed home. The patient came to this institution with fever of 103, chills. He is having severe drainage and all the area is red. He denied having any chest pain. He is not feeling well at all with his fever and chills. He was cultured. He was given vancomycin. Regarding his diabetes, the patient is diabetic for 20 years [address] followed by Dr. Daniels. Of note, the patient is known to have right knee surgery complicated by staph infection in the past and he had multiple surgeries and antibiotics and this healed finally. The patient does have abnormal gait because he leaned on his left leg and he does have left foot fracture. REVIEW OF SYSTEMS: GENERAL: Fever and chills. HEENT: Unremarkable. ENDOCRINE: No polyuria. No polydipsia. No cold intolerance. PULMONARY: Some cough. Chest wall pain. CARDIAC: No angina. No orthopnea. No paroxysmal nocturnal dyspnea. GASTROINTESTINAL: No hematemesis. No melena. HEMATOLOGY: No easy bruising or bleeding. GENITOURINARY: Decreased urinary stream. No frequency. MUSCULOSKELETAL: Back pain, knee pain, leg pain. PERIPHERAL VASCULAR: No claudication. SKIN: Thigh, there is infection on the right mid thigh with drainage. NEUROLOGIC: Gait abnormality. PAST MEDICAL HISTORY: 1. Coronary artery bypass for two-vessel RCA and LAD, on November 29 and aortic valve replacement. 2. Diabetes mellitus. 3. Hypertension. 4. Degenerative joint disease. 5. Status post knee replacement. 6. Left hip replacement. 7. Right hip replacement. 8. Total six knee surgeries in the past. In 2016 latest. 9. Cholecystectomy. 10. Right carpal tunnel surgery. 11. Bilateral cataract surgery. SOCIAL HISTORY: He is . He is nonsmoker and non-alcohol drinker. He is retired. FAMILY HISTORY: Mother at age 81 with kidney disease. Father at age 77 with brain aneurysm and lung cancer. One sister had aortic valve replacement, coronary artery bypass surgery, one daughter with back problem and colitis. HOME MEDICATIONS: Include: 1. Aspirin 81 mg a day. 2. Plavix 75 mg a day. 3. Losartan and hydrochlorothiazide 50/12.5 one tablet a day. 4. Bystolic 5 mg a day. 5. Metformin 1000 mg twice a day. 6. Tradjenta 5 mg a day. 7. Levoxyl 200 mcg a day. 8. Nexium 40 mg a day. 9. Glyburide 2 mg a day. ALLERGIES: TETANUS, IMMUNOGLOBULIN. PHYSICAL EXAMINATION: VITAL SIGNS: Height of 5 feet 10 inches, weight of 190 pounds, blood pressure 130/80, heart rate of 90, respiratory rate of 18, temperature was as high as 103. HEENT: Pupils are reactive. NECK: No elevation of jugular venous pulsation. Bilateral carotid bruit. No thyromegaly. CHEST: Decreased air entry in the bases. The wound seems to be clean. HEART: PMI 5th left intercostal space. Normal first and second heart sounds with ejection systolic murmur. ABDOMEN: Soft. EXTREMITIES: There is drainage and infection and swelling and redness of the right mid thigh at site of vein harvesting. Decreased feet pulses. NEUROLOGIC: Able to move his extremity. Gait is not examined. LABORATORY DATA: White blood cell count of 13.8, hemoglobin of 11.2, hematocrit of 37%, platelet count of 386,000. BUN of 15, creatinine of 0.9, sodium of 133, potassium of 4.1. EKG showing normal sinus rhythm, ST changes. IMPRESSION AND PLAN: 1. Sepsis and infected seroma of the right mid thigh site of vein harvesting. 2. Status post recent aortic valve replacement and coronary artery bypass surgery. 3. Hypertension. 4. Diabetes mellitus. 5. Arthritis. 6. Hypothyroidism. 7. Hypercholesteremia. Cardiac magallanes, my recommendation is consulting Dr. Moe and Dr. De La Cruz. The patient already also consult for Dr. Martinez. Possibly the patient need drainage. We already did blood cultures. The patient started already on antibiotics. We will culture also the drainage from the wound. Care discussed with the patient and his family. Questions are answered. MD LUPE Renteria/JOSE ELIAS /[id number]
--- NOTE | 2018-12-13 17:52 | NUR ---
PT HAS TEMP 100.9. 2 TYLENOL GIVEN ORDER
--- NOTE | 2018-12-13 18:20 | Consultation ---
DATE OF CONSULTATION: REASON FOR CONSULTATION: Sepsis, cellulitis of the right thigh, surgical wound infection. HISTORY OF PRESENT ILLNESS: This patient, who is a very pleasant 78-year-old white male, history of coronary artery disease. The patient on November 29, he was in [facility], underwent aortic valve replacement and two-vessel bypass. The patient went home on December 04. He was found to have some redness and drainage from the right leg, where a venous graft was taken. Few days later, he went back to [facility] ER. Apparently, they got hold of Dr. Moe. He was evaluated and he was discharged home on nothing. Then, he called his doctor, Dr. Daniels that he was having fever and chills and not feeling well, nausea and vomiting. From the emergency room, he was admitted and started on antibiotic. I am asked to see him. There is drainage coming from his wound. He is currently lying in bed comfortably. His at the bedside. The patient is also well known to Dr. Soto. PAST MEDICAL HISTORY: The patient, who have past medical history of hypothyroidism, diabetes mellitus, neuropathy, hypertension, coronary artery disease, and hypercholesterolemia. PAST SURGICAL HISTORY: CABG and aortic valve replacement. ALLERGIES: TETANUS AND DIPHTHERIA TOXOID. SOCIAL HISTORY: He denies smoking, drug abuse, or alcohol abuse. FAMILY HISTORY: Hypertension and diabetes. REVIEW OF SYSTEMS: At the present time, he is doing very well. HEENT: Negative. PULMONARY: Negative. CARDIAC: Negative. GI: Negative. : Negative. SKIN: There is no rash except redness on the thigh. JOINT: There is nothing new, but when he first came, he was having nausea, vomiting and not feeling well and feeling really bad with fever up to 103. MEDICATION LIST: Reviewed. He is currently on Synthroid, Protonix, Tylenol, Neurontin, and Bystolic. When he first came, he received dose of vancomycin and dose of Levaquin. PHYSICAL EXAMINATION: GENERAL: He is currently alert and oriented. Does not seem to be in acute distress. VITAL SIGNS: His vitals stable, currently afebrile. His temperature 99.7, but when he first came it was 103 and his blood pressure 116/71. HEENT: He is not icteric. NECK: Supple. CHEST: Clear. HEART: S1 and S2. No S3, S4, or murmur. ABDOMEN: Soft. Bowel sounds present. No tenderness. No hepatosplenomegaly. EXTREMITIES: No edema. On the right side, there is erythema. There is induration. LABORATORY DATA: Reviewed. Blood cultures negative. Wound cultures pending. White count 13.8 and hemoglobin 11.8. Sodium 133, potassium 4.1, and creatinine 0.94. Liver enzyme within normal limit. IMPRESSION: 1. Sepsis, present on admission, concerned cellulitis of the thigh, concerned about abscess. The plan is to put him on vancomycin and cefepime, IV fluid. Recheck CBC. Recheck Chem panel. Obtain ultrasound of the soft tissue of the thigh. As there is fluid present, we will recommend to do ultrasound-guided aspiration and sent for culture and sensitivity. 2. We will follow up with the blood cultures. If he is bacteremic, then he would need an echocardiogram or [facility]. 3. Other medical problems as above seem to be stable. We will follow with you. MD FELISA Palacios/JOSE ELIAS /[id number]
--- NOTE | 2018-12-13 18:45 | NUR ---
REPORT GIVEN TO ON COMING SHIFT.
--- NOTE | 2018-12-13 19:00 | NUR ---
patient received awake, alert, lying quietly in bed. vss. no c/o pain noted. ivf continue to infuse without difficulty. right inner thigh incision continues to drain. clean, dry dressing applied to this site at this time. pm assessment complete. patient instructed to call for assistance when needed.
[2018-12-13 19:30] VITALS: BP 117/59
[2018-12-13 20:00] VITALS: BP 117/59
[2018-12-13] MEDS: CEFEPIME 1GM/NS 0.9% 50 ML 50 ML IV SCH (20:00)
[2018-12-13] MEDS: ATORVASTATIN 20 MG TAB PO SCH (21:00)
[2018-12-13] MEDS: PANTOPRAZOLE SOD 40 MG TABEC PO SCH (21:00)
[2018-12-13] MEDS ORDERED: NON-FORMULARY MEDICATION ([Nexium] 40 MG) PO SCH (21:00)
--- NOTE | 2018-12-13 21:31 | History and Physical ---
CHIEF COMPLAINT: The patient is a 78-year-old male who comes in with fever and fatigue. HISTORY OF PRESENT ILLNESS: Mr. Mariana Armenta is a 78-year-old male, who in November underwent a CABG with aortic valve replacement by Dr. Silverio Moe. The patient was feeling febrile and also tenderness in the right lower extremity, called our service and the patient was asked to come into the emergency room secondary to high fever and rule out infection. The patient came in, was found to have a right thigh cellulitis with questionable abscess or seroma and cellulitis of the area. The patient is admitted to the hospital for IV antibiotics and also for questionable drainage of the seroma. PAST MEDICAL HISTORY: History of diabetes mellitus, history of hypertension, history of hyperlipidemia, history of coronary artery disease, history of aortic stenosis and history of multiple orthopedic surgeries with infection with MRSA of the knee. MEDICATIONS: As per medical reconciliation sheet. The patient has changed his medications ever since being discharged. The patient is also on Lantus and Humalog for diabetic coverage. The patient is also on atorvastatin, aspirin and carvedilol for CAD. PAST SURGICAL HISTORY: As mentioned above, recent history of CABG, history of multiple orthopedic surgeries and history of bilateral cataract operations. REVIEW OF SYSTEMS: Negative for chest pain or shortness of breath. Positive for fever. Positive for fatigue and generalized malaise. No diplopia. No blurry vision. No hematochezia. No hematemesis. No abdominal pain either. FAMILY HISTORY: Positive for diabetes mellitus in the family and hypertension in the family. ALLERGIES: ALLERGIC TO TETANUS AND DIPHTHERIA TOXOIDS. PHYSICAL EXAMINATION: GENERAL: The patient is alert and oriented x3. HEENT: Normocephalic, atraumatic. Pupils are reactive to light and accommodation. CVS: S1 and S2 normal. Regular rate and rhythm. Chest wall sternotomy scar seen and also incision scar seen. EXTREMITIES: Right lower extremity, at graft retrieval site, the patient has increased redness, increased induration and swelling. The patient has tenderness in that area too, extremity with positive for edema. LABORATORY [place]: [place] [address], hemoglobin of 11.8 and hematocrit of 36.5. Chemistry shows sodium of 133, potassium 4.1, BUN 15, creatinine 0.95. BNP was 137.2. Troponins have been trended negative so far. Lactic acid was 10.6. IMAGING STUDIES: Extremity ultrasound shows linear subcutaneous fluid, likely a postoperative seroma. ASSESSMENT: 1. Infected postoperative site with possible seroma. PLAN: 1. Continue on antibiotic. The patient has been put on vancomycin and cefepime. We will continue that. ID is on the case. 2. Hypothyroidism. Continue with levothyroxine. 3. Coronary artery disease. Continue with beta-blockade and hold off on aspirin at this time. 4. Hypertension. Continue with antihypertensives. 5. Hyperlipidemia. Continue with antihyperlipidemic agents. Further recommendation per clinical course. We have Surgery, Cardiology and Infectious Disease in the case. We will continue to monitor this patient along with consultants. MD RAVINDER Barclay/MODL /[id number]
[2018-12-14] VITALS (8 sets, daily range): BP systolic 128–161; BP diastolic 66–92
[2018-12-14] MEDS: VANCOMYCIN 1GM/NS 250 ML 250 ML IV SCH ×2 (00:55→12:17)
[2018-12-14] MEDS: HYDROCODONE/APAP 7.5MG-325MG 1 EA TAB PO SCH ×6 (02:00→21:29)
[2018-12-14] MEDS: CEFEPIME 1GM/NS 0.9% 50 ML 50 ML IV SCH ×3 (04:00→21:00)
[2018-12-14] MEDS: LEVOTHYROXINE SODIUM 100 MCG TAB PO SCH (05:28)
--- NOTE | 2018-12-14 06:00 | NUR ---
patient appears to be resting quietly. no c/o pain or elevated temp noted throughout the night.
[2018-12-14 06:30] LABS: BASOPHILS % 0.6 % (0.0-1.0); EOSINOPHILS # (AUTO) 0.3 (0.0-0.4); EOSINOPHILS % 3.5 % (0.0-6.0); HEMATOCRIT 31.7 % (38.2-49.6); HEMOGLOBIN 9.9 g/dL (14.0-18.0); LYMPHOCYTES % 13.5 % (18.0-39.1); MEAN CORPUSCULAR HEMOGLOBIN 26.4 pg (28-32); MEAN CORPUSCULAR HGB CONC 31.2 g/dL (31-35); MEAN CORPUSCULAR VOLUME 84.5 fL (81-99); MONOCYTES # (AUTO) 0.5 (0.2-0.8); MONOCYTES % 6.8 % (4.4-11.3); NEUTROPHILS # (AUTO) 5.4 (2.1-6.9); NEUTROPHILS % 74.5 % (38.7-80.0); PLATELET COUNT 247 x10e3/uL (140-360); RED BLOOD COUNT 3.75 x10e6/uL (4.3-5.7); RED CELL DISTRIBUTION WIDTH 14.6 % (11.7-14.4)
[2018-12-14 06:54] LABS: ALANINE AMINOTRANSFERASE 13 IU/L (0-55); ALBUMIN 2.6 g/dL (3.5-5.0); ALBUMIN/GLOBULIN RATIO 0.9 (0.8-2.0); ALKALINE PHOSPHATASE 74 IU/L (40-150); ANION GAP 12.6 mmol/L (8-16); BLOOD UREA NITROGEN 9 mg/dL (7-26); BUN/CREATININE RATIO 11 (6-25); CALCIUM 8.9 mg/dL (8.4-10.2); CARBON DIOXIDE 22 mmol/L (22-29); CHLORIDE 102 mmol/L (98-107); EST GLOMERULAR FILTRATION RATE > 60 ML/MIN (60-); GLUCOSE 92 mg/dL (74-118); POTASSIUM 3.6 mmol/L (3.5-5.1); SODIUM 133 mmol/L (136-145)
[2018-12-14] MEDS: INSULIN LISPRO 100 UNIT/1 ML 3ML VIAL SQ SCH ×7 (07:30→21:00)
--- NOTE | 2018-12-14 07:36 | NUR ---
PATIENT IN BED RESTING WITH NO S/S OF DISTRESS. DENIED PAIN OR DISCOMFORT AT THIS TIME. DRESSING TO RIGHT INNER THIGH WITH SMALL AMOUNT OF DRAINAGE. TELEMETRY BOX IN PLACE. BED IN LOWER POSITION, CALL LIGHT AT REACH.
[2018-12-14] MEDS ORDERED: INSULIN GLARGINE SQ SCH (09:00)
[2018-12-14] MEDS ORDERED: INSULIN GLARGINE 100 UNITS/ML VIAL SQ SCH (09:00)
[2018-12-14] MEDS: ASPIRIN 325 MG TAB PO SCH (09:45)
[2018-12-14] MEDS: MULTIVITAMINS/MINERALS TAB PO SCH (09:46)
[2018-12-14] MEDS: METOPROLOL TARTRATE 50 MG TAB PO SCH ×2 (09:46→17:00)
[2018-12-14] MEDS: SODIUM CHLORIDE 0.9% 1000ML 1,000 ML IV SCH ×2 (11:00→16:08)
--- NOTE | 2018-12-14 12:50 | NUR ---
DRESSING CHANGED TO RIGHT INNER THIGH. PATIENT REPOSITIONED IN BED. CALL LIGHT AT REACH.
--- NOTE | 2018-12-14 16:31 | NUR ---
PATIENT NOTED WITH BLOOD SUGAR OF 60. NO S/S OF HYPOGLYCEMIA. ORANGE JUICE GIVEN AND WELL TOLERATED. BLOOD SUGAR RECHECKED WITH THE READING OF 124. WILL CLOSELY MONITOR.
[2018-12-14] MEDS ORDERED: TEMAZEPAM 15 MG CAP PO PRN (18:15)
--- NOTE | 2018-12-14 20:57 | Progress Note ---
DATE: SUBJECTIVE: A 78-year-old male, who comes in with cellulitis of the right lower extremity from the toe to and also a seroma of the same area. Currently, the patient is on antibiotic, vancomycin, and cefepime. Seems to have gotten better. Pain is better. No chest pain. No shortness of breath. The patient's blood sugar did drop today. PHYSICAL EXAMINATION: VITAL SIGNS: Temperature is 98.6, pulse of 103, blood pressure is 140/66, and pulse ox of 93%. HEENT: Normocephalic, atraumatic. Pupils are reactive to light and accommodation. CVS: S1, S2, tachy. ABDOMEN: Nontender, nondistended. EXTREMITIES: No clubbing. No cyanosis. Positive edema of right lower extremity with wound which has decreased in swelling, erythema, and intensity of pain. LABORATORY VALUES: White count is 7.19, hemoglobin of 9.9, hematocrit 31.7. Chemistry; shows sodium of 133, potassium of 3.6, glucoses have been running in the 90s to 140s. Urine is negative and Serology, influenza is negative too. MICROBIOLOGY: Wound cultures growing gram-negative rods. We will continue monitoring his wound cultures, Gram stains. ASSESSMENT: A 78-year-old male with: 1. Cellulitis and infected seroma of the right mid thigh vein harvesting. 2. Status post aortic valve replacement and also coronary artery bypass surgery. 3. Hypothyroidism. 4. Diabetes mellitus. 5. Hypertension. Continue with followup with Dr. Moe and Dr. De La Cruz. IV antibiotics with Dr. Martinez. He is getting better. We will follow up with wound culture and Gram stain. Further recommendation per clinical course. Flex Daniels MD ASJ/MODL /[id number]
[2018-12-14] MEDS: ATORVASTATIN 20 MG TAB PO SCH (21:00)
[2018-12-14] MEDS: PANTOPRAZOLE SOD 40 MG TABEC PO SCH (21:00)
--- NOTE | 2018-12-14 21:00 | NUR ---
PATIENT IN STABLE CONDITION, NO DISTRESS NOTED. IS AT BEDSIDE AND PATIENT VOICES NO PAIN AT THIS TIME. IV IS RUNNING AT ORDERED RATE AND WOUND ON RIGHT LEG IS DRY, CLEAN, AND INTACT. BED IS IN LOWEST POSITION, BOTH SIDE RAILS ARE UP, CALL LIGHT WITHIN EASY REACH, WILL CONTINUE TO MONITOR.
--- NOTE | 2018-12-14 23:00 | NUR ---
PATIENT HAD ACCIDENTLY URINATED IN BED AFTER UNSUCCESSFULLY TRYING TO USE THE URINAL. GOWN AND SHEETS WERE CHANGED PROMPTLY. NOTICED DRAINAGE FROM WOUND AND REDRESSED IT, IT IS DRY CLEAN AND INTACT, CONTINUING TO MONITOR.
[2018-12-15] VITALS (7 sets, daily range): BP systolic 118–145; BP diastolic 75–93
[2018-12-15] MEDS: SODIUM CHLORIDE 0.9% 1000ML 1,000 ML IV SCH ×4 (00:59→16:08)
[2018-12-15] MEDS: HYDROCODONE/APAP 7.5MG-325MG 1 EA TAB PO SCH ×6 (02:00→21:19)
[2018-12-15] MEDS: CEFEPIME 1GM/NS 0.9% 50 ML 50 ML IV SCH ×3 (04:46→20:40)
[2018-12-15] MEDS: LEVOTHYROXINE SODIUM 100 MCG TAB PO SCH (06:38)
[2018-12-15] MEDS ORDERED: TRAZODONE HCL 50 MG TAB PO PRN (06:45)
--- NOTE | 2018-12-15 07:10 | NUR ---
RCD PT AT BED PT IS ALERT AND ORIENTED PT RESTING ON BED IV PATENT BY SALINE FLUSH BED LOW AND LOCKED CALL LIGHT IN REACH
[2018-12-15] MEDS: INSULIN LISPRO 100 UNIT/1 ML 3ML VIAL SQ SCH ×7 (07:30→20:33)
[2018-12-15] MEDS: METOPROLOL TARTRATE 50 MG TAB PO SCH ×2 (09:00→16:51)
[2018-12-15] MEDS: ASPIRIN 325 MG TAB PO SCH (09:00)
[2018-12-15] MEDS: INSULIN GLARGINE 100 UNITS/ML VIAL SQ SCH (09:00)
[2018-12-15] MEDS: MULTIVITAMINS/MINERALS TAB PO SCH (09:00)
--- NOTE | 2018-12-15 11:09 | Progress Note ---
DATE: SUBJECTIVE: A 78-year-old male, in bed 299. The patient comes in with seroma and cellulitis of the right thigh. The patient is currently still draining with serous fluid from the thigh. Bandages in place. Tenderness and pain have decreased. OBJECTIVE: VITAL SIGNS: Temperature is 96.3, pulse of 103, respirations of 17, blood pressure is 138/76, pulse oximetry of 95%. HEENT: Normocephalic, atraumatic. Pupils reactive to light and accommodation. CVS: S1 and S2 normal. Regular rate and rhythm. ABDOMEN: Nontender and nondistended. EXTREMITIES: Positive for seroma on the right thigh with redness extending all the way to the groin. Decreased redness compared to initial admission. The patient will be continued on antibiotics. ASSESSMENT: 1. Seroma with cellulitis of the right thigh at the area of venous graft retrieval. Plan is to continue vancomycin and cefepime. 2. Hypertension, hyperlipidemia, and recent history of aortic valve replacement with coronary artery bypass grafting. Continue with CV medication. Cardiology on case. 3. Hyperlipidemia. Continue on same medication. 4. Diabetes mellitus. The patient's blood sugars have been controlled with the current regimen of sliding scale and also insulin glargine. Further recommendation per clinical course. The patient can sit at the side of his bed. SCDs for DVT prophylaxis have been instituted. Further recommendation per clinical course. We will continue monitoring the patient along with consultants. Discussed the case in detail with who was by the bedside. MD RAVINDER Barclay/JOSE ELIAS /[id number]
[2018-12-15] MEDS: VANCOMYCIN 1GM/NS 250 ML 250 ML IV SCH ×2 (11:30→23:30)
--- NOTE | 2018-12-15 15:40 | NUR ---
MD WITH PT, COULD NOT DO ASSESSMENT
--- NOTE | 2018-12-15 18:43 | NUR ---
PT RESTING ON BED BED SIDE REPORT GIVEN TO ONCOMING NURSE
[2018-12-15] MEDS: ATORVASTATIN 20 MG TAB PO SCH (20:40)
[2018-12-15] MEDS: PANTOPRAZOLE SOD 40 MG TABEC PO SCH (20:40)
--- NOTE | 2018-12-15 20:40 | NUR ---
PATIENT IS AOX3, NO SIGNS OF RESPIRATORY DISTRESS NOTED. IS AT BEDSIDE SITTING IN RECLINER AND PATIENT VOICES NO PAIN AT THIS TIME. IV IS RUNNING AT ORDERED RATE AND WOUND ON RIGHT LEG IS INTACT AND HAS MINIMAL DRAINAGE. BED IS IN LOWEST POSITION, BOTH SIDE RAILS ARE UP, CALL LIGHT WITHIN EASY REACH, WILL CONTINUE TO MONITOR.
[2018-12-16] VITALS (8 sets, daily range): BP systolic 106–164; BP diastolic 72–97
[2018-12-16] MEDS: HYDROCODONE/APAP 7.5MG-325MG 1 EA TAB PO SCH ×6 (02:00→22:00)
[2018-12-16] MEDS: CEFEPIME 1GM/NS 0.9% 50 ML 50 ML IV SCH ×3 (03:59→21:00)
[2018-12-16] MEDS: SODIUM CHLORIDE 0.9% 1000ML 1,000 ML IV SCH (03:59)
[2018-12-16] MEDS: LEVOTHYROXINE SODIUM 100 MCG TAB PO SCH (05:38)
--- NOTE | 2018-12-16 07:26 | NUR ---
PATIENT IN BED RESTING WITH EYES CLOSED, NO S/S/ OF DISTRESS NOTED. DRESSING DRY AND INTACT TO RIGHT INNER THIGH. BED IN LOWER POSITION, CALL LIGHT AT REACH.
[2018-12-16] MEDS: INSULIN LISPRO 100 UNIT/1 ML 3ML VIAL SQ SCH ×7 (07:30→21:00)
[2018-12-16] MEDS: INSULIN GLARGINE 100 UNITS/ML VIAL SQ SCH (09:00)
[2018-12-16] MEDS ORDERED: FUROSEMIDE INJ 10 MG/ML 2 ML VIAL IV NR (09:15)
[2018-12-16] MEDS: METOPROLOL TARTRATE 50 MG TAB PO SCH ×2 (09:55→17:22)
[2018-12-16] MEDS: ASPIRIN 325 MG TAB PO SCH (09:55)
[2018-12-16] MEDS: MULTIVITAMINS/MINERALS TAB PO SCH (09:56)
[2018-12-16] MEDS: POLYETHYLENE GLYCOL 3350 17 GM PACK PO SCH (10:16)
--- NOTE | 2018-12-16 10:46 | NUR ---
PATIENT C/O MD MIRIAM NOTIFIED. NEW ORDER RECEIVED AND IMPLEMENTED.
[2018-12-16] MEDS: VANCOMYCIN 1GM/NS 250 ML 250 ML IV SCH ×2 (11:30→22:52)
--- NOTE | 2018-12-16 12:05 | Progress Note ---
DATE: SUBJECTIVE: The patient is a 78-year-old male, comes in with infected seroma of the right lower extremity, status post venous graft harvesting. No chest pain. No shortness of breath. The patient did not sleep well yesterday, did complain of some cough and also sounded wet according to the nursing staff. OBJECTIVE: VITAL SIGNS: Temperature is 97.0, T-max is 97.5, respirations of 18, blood pressure is 139/97, pulse oximeter of 95% on room air. HEENT: Normocephalic, atraumatic. Pupils are reactive to light and accommodation. CVS: S1 and S2 normal. Regular rate and rhythm. CHEST: Positive for some few crackles. The patient's chest wall has a sternotomy scar. No signs of infection. ABDOMEN: Nontender, nondistended. EXTREMITIES: Right lower extremities, seroma better. Upper thigh with some erythema and redness, which has decreased in intensity and tenderness. LABORATORY VALUES: None done. From the , white count 7.1. INR on a down trend. Chemistry showed blood sugars running in the 70s to 144. Coags normal. Toxicology, vancomycin last level was 8.7 done yesterday. Microbiology, left knee shows Klebsiella pneumoniae and Staphylococcus which is coagulative negative and sensitive to cefepime and not to vancomycin. ASSESSMENT: 1. A 78-year-old male with a seroma infection and cellulitis of the right thigh. Continue on cefepime. Can discontinue vancomycin if it is okay with ID. 2. The patient is a little fluid overloaded. We will stop the IV fluids and 20 mg of Lasix will be given. 3. Constipation. We will give MiraLax. 4. History of coronary artery bypass grafting and also valve replacement. Continue monitoring the patient's cardiac status. Cardiology is on consult. Further recommendation per clinical course. We will continue to monitor the patient along with consultants and also the patient is on sliding scale and we decreased the amount of glargine yesterday secondary to hypoglycemia that occurred in the hospital. MD RAVINDER Barclay/DEANL /[id number]
--- NOTE | 2018-12-16 15:21 | NUR ---
PATIENT ASSISTED WITH SHOWER AND BACK TO CHAIR. DRESSING CHANGED TO RIGHT INNER THIGH. CALL LIGHT AT REACH.
[2018-12-16] MEDS: PANTOPRAZOLE SOD 40 MG TABEC PO SCH (21:00)
[2018-12-16] MEDS: ATORVASTATIN 20 MG TAB PO SCH (21:00)
--- NOTE | 2018-12-16 21:00 | NUR ---
PATIENT IS AOX3, NO SIGNS OF RESPIRATORY DISTRESS NOTED, AND PATIENT HAS NORMAL SALINE FLUIDS DISCONTINUED. IS AT BEDSIDE SITTING IN RECLINER AND PATIENT VOICES NO PAIN AT THIS TIME. IV ANTIBIOTIC RUNNING AT ORDERED RATE AND WOUND ON RIGHT LEG IS INTACT AND HAS MINIMAL DRAINAGE, COMPRESSION DEVICES ON BILATERAL LEGS. BED IS IN LOWEST POSITION, BOTH SIDE RAILS ARE UP, CALL LIGHT WITHIN EASY REACH, WILL CONTINUE TO MONITOR.
[2018-12-17] VITALS (8 sets, daily range): BP systolic 106–164; BP diastolic 59–85
[2018-12-17] MEDS: HYDROCODONE/APAP 7.5MG-325MG 1 EA TAB PO SCH ×6 (02:00→21:06)
[2018-12-17] MEDS: CEFEPIME 1GM/NS 0.9% 50 ML 50 ML IV SCH ×3 (04:50→21:05)
[2018-12-17] MEDS: LEVOTHYROXINE SODIUM 100 MCG TAB PO SCH (05:20)
--- NOTE | 2018-12-17 07:00 | NUR ---
received resting quietly. no co pain at this time.
[2018-12-17] MEDS: INSULIN LISPRO 100 UNIT/1 ML 3ML VIAL SQ SCH ×7 (07:30→21:05)
--- NOTE | 2018-12-17 07:44 | Progress Note ---
DATE: SUBJECTIVE: The patient is here for infected seroma of the right lower extremity, where venous graft was harvested. The patient is currently doing better. Discharge and drainage from the seroma is better. Redness is better. Pain is better, but continues with some cough. No chest pain. No shortness of breath. The patient is also status post CABG and aortic wall replacement. OBJECTIVE: VITAL SIGNS: Temperature is 97.7, pulse of 102, respirations of 17, blood pressure is 165/85, pulse oximetry of 95%. HEENT: Normocephalic, atraumatic. Pupils are reactive to light and accommodation. CVS: S1 and S2 normal. Regular rate and rhythm. ABDOMEN: Nontender, nondistended. EXTREMITIES: Right extremity erythema with decreased swelling, decreased tenderness, and drainage also has been minimal. ASSESSMENT: 1. Cellulitis of the right lower extremity, infected seroma of the right lower extremity. 2. Constipation. 3. History of coronary artery disease, status post coronary artery bypass grafting, status post valve replacement. PLAN: Continue to monitor the patient. CBC is stable. Coags are stable. Continue to monitor the patient with IV antibiotics and also add Robitussin to his regimen of guaifenesin as an expectorant, and we will repeat hemoglobin and hematocrit tomorrow. MD RAVINDER Bacrlay/MODL /[id number]
[2018-12-17] MEDS: ASPIRIN 325 MG TAB PO SCH (08:45)
[2018-12-17] MEDS: METOPROLOL TARTRATE 50 MG TAB PO SCH ×2 (08:45→16:57)
[2018-12-17] MEDS: MULTIVITAMINS/MINERALS TAB PO SCH (08:46)
[2018-12-17] MEDS: POLYETHYLENE GLYCOL 3350 17 GM PACK PO SCH (08:46)
[2018-12-17] MEDS: INSULIN GLARGINE 100 UNITS/ML VIAL SQ SCH (08:51)
--- NOTE | 2018-12-17 11:00 | NUR ---
Dr Ochoa to see pt. no new oreders received.
[2018-12-17] MEDS: VANCOMYCIN 1GM/NS 250 ML 250 ML IV SCH ×2 (11:30→22:21)
--- NOTE | 2018-12-17 11:30 | NUR ---
Dr Guero De La Cruz to see pt.
--- NOTE | 2018-12-17 14:30 | NUR ---
PT RESTING QUIETLY AT THIS TIME. FAMILY REMAINS AT BEDSIDE.
--- NOTE | 2018-12-17 16:45 | NUR ---
PT AMBULATES WITH WALKER 30FT. PT TOLERATED WELL.
--- NOTE | 2018-12-17 18:15 | Progress Note ---
DATE: SUBJECTIVE: Mr. Armenta is doing better. No new complaints. He still have some redness and swelling, but the leg itself seems to be getting better. Minimal drainage noted on the dressing. LABORATORY DATA: Reviewed. EVENTS: Reviewed. REVIEW OF SYSTEMS: HEENT: Negative. PULMONARY: Negative. CARDIAC: Negative. : Negative. PHYSICAL EXAMINATION: GENERAL: He is currently alert, oriented, does not seem to be in acute distress. VITAL SIGNS: His vitals stable currently afebrile. HEENT: He is not icteric. NECK: Supple. CHEST: Clear. HEART: S1, S2. No murmur. ABDOMEN: Soft. Bowel sounds present. MUSCULOSKELETAL: Tenderness of the thigh. There is some erythema noted. There is an area of dehiscence noted. IMPRESSION AND PLAN: His wound cultures are showing coagulase negative Staph as well as Klebsiella pneumonia. His medication is currently on cefepime and vancomycin. His physical examination continued to have some redness and swelling around the thigh. I would like to continue with IV antibiotic maybe another week or two till I see improvement. We probably have to get a PICC line at the present time. We will follow up clinically until total resolution. MD FELISA Palacios/JOSE ELIAS /[id number]
--- NOTE | 2018-12-17 19:08 | NUR ---
REPORT GIVEN TO ON COMING SHIFT. BEDSIDE ROUNDS COMPLETE
--- NOTE | 2018-12-17 19:10 | NUR ---
Received bedside report from day nurse. Patient resting in bed, no s/s of distress or c/o pain at this time. All safety measures in place. Family at bedside. Will continue to monitor.
[2018-12-17] MEDS: PANTOPRAZOLE SOD 40 MG TABEC PO SCH (21:05)
[2018-12-17] MEDS: ATORVASTATIN 20 MG TAB PO SCH (21:05)
[2018-12-18] VITALS (8 sets, daily range): BP systolic 106–152; BP diastolic 71–86
[2018-12-18] MEDS: HYDROCODONE/APAP 7.5MG-325MG 1 EA TAB PO SCH ×6 (02:00→22:00)
[2018-12-18] MEDS: CEFEPIME 1GM/NS 0.9% 50 ML 50 ML IV SCH ×3 (02:59→20:34)
[2018-12-18] MEDS: LEVOTHYROXINE SODIUM 100 MCG TAB PO SCH (05:43)
[2018-12-18 06:27] LABS: BASOPHILS # (AUTO) 0.1 (0.0-0.1); EOSINOPHILS # (AUTO) 0.5 (0.0-0.4); HEMATOCRIT 34.8 % (38.2-49.6); HEMOGLOBIN 10.8 g/dL (14.0-18.0); LYMPHOCYTES # (AUTO) 1.4 (1.0-3.2); LYMPHOCYTES % 26.9 % (18.0-39.1); MEAN CORPUSCULAR HEMOGLOBIN 25.8 pg (28-32); MEAN CORPUSCULAR VOLUME 83.1 fL (81-99); MONOCYTES # (AUTO) 0.3 (0.2-0.8); NEUTROPHILS # (AUTO) 2.9 (2.1-6.9); NEUTROPHILS % 55.3 % (38.7-80.0); PLATELET COUNT 253 x10e3/uL (140-360); RED BLOOD COUNT 4.19 x10e6/uL (4.3-5.7)
[2018-12-18 06:54] LABS: ANION GAP 12.9 mmol/L (8-16); BLOOD UREA NITROGEN 9 mg/dL (7-26); BUN/CREATININE RATIO 11 (6-25); CALCIUM 9.4 mg/dL (8.4-10.2); CARBON DIOXIDE 26 mmol/L (22-29); CHLORIDE 105 mmol/L (98-107); CREATININE, SERUM 0.84 mg/dL (0.72-1.25); EST GLOMERULAR FILTRATION RATE > 60 ML/MIN (60-); GLUCOSE 134 mg/dL (74-118); POTASSIUM 3.9 mmol/L (3.5-5.1); SODIUM 140 mmol/L (136-145)
[2018-12-18] MEDS ORDERED: GUAIFENESIN 200 MG/10 ML UDC PO PRN (07:00)
--- NOTE | 2018-12-18 07:18 | Progress Note ---
DATE: SUBJECTIVE: The patient is a 78-year-old gentleman status post CABG, status post vein grafting and harvesting from the right leg, who developed a seroma, which was infected. The patient is feeling better. Antibiotics are on board. Erythema, tenderness and pain in the lower extremities to right side has been dramatically improved. The patient still continues with some erythema around the wound. No chest pain. No shortness of breath. Positive for coughing. No nausea, vomiting, or diarrhea. OBJECTIVE: VITAL SIGNS: Temperature is 97.1, pulse of 101, respirations 20, blood pressure is 151/84, pulse oximetry of 100%. HEENT: Normocephalic, atraumatic. Pupils are reactive to light and accommodation. CVS: S1 and S2 normal. Regular rate and rhythm. ABDOMEN: Nontender, nondistended. EXTREMITIES: Right lower extremity, vein harvesting area with seroma, which was decreased in size dramatically. Tenderness at the wound site, but markedly decreased and trace edema in the lower extremities. LABORATORY VALUES: Hemoglobin is 10.8 and hematocrit of 34.8. The patient's white count is normalized. Chemistries are pending. Coags normal. ASSESSMENT: A 78-year-old male with: 1. Infected seroma: 2. Cellulitis. 3. History of coronary artery bypass grafting and vein grafting. 4. Coronary artery disease. PLAN: Continue with antibiotics. The patient's microbiology grew Klebsiella and Staphylococcus coagulase negative, sensitive to the antibiotics being given. Currently, the patient is on vancomycin and cefepime. Continue to monitor the patient. Further recommendation per clinical course. DISPOSITION: Possible discharge in 1 to 2 days. MD RAVINDER Barclay/DEANL /[id number]
[2018-12-18] MEDS: INSULIN LISPRO 100 UNIT/1 ML 3ML VIAL SQ SCH ×7 (07:30→20:12)
--- NOTE | 2018-12-18 07:30 | NUR ---
PATIENT IN BED WITH HEAD OF BED ELEVATED TALKING ON THE PHONE, NO DISTRESS NOTED. DRESSING TO RIGHT INNER THIGH WITH SMALL AMOUNT OF DRAINAGE. BED IN LOWER POSITION, CALL LIGHT AT REACH.
[2018-12-18] MEDS: INSULIN GLARGINE 100 UNITS/ML VIAL SQ SCH (09:00)
[2018-12-18] MEDS: MULTIVITAMINS/MINERALS TAB PO SCH (09:06)
[2018-12-18] MEDS: METOPROLOL TARTRATE 50 MG TAB PO SCH ×2 (09:06→17:27)
[2018-12-18] MEDS: POLYETHYLENE GLYCOL 3350 17 GM PACK PO SCH (09:06)
[2018-12-18] MEDS: ASPIRIN 325 MG TAB PO SCH (09:06)
[2018-12-18] MEDS: VANCOMYCIN 1GM/NS 250 ML 250 ML IV SCH ×2 (11:25→23:30)
--- NOTE | 2018-12-18 11:31 | NUR ---
PATIENT AMBULATING IN HALLWAY WITH PHYSICAL THERAPY, NO COMPLAIN VOICED. BACK TO CHAIR WITH CALL LIGHT AT REACH.
--- NOTE | 2018-12-18 15:41 | NUR ---
WALKING ROUND MADE, PATIENT IN BED RESTING WITH EYES CLOSED, NO DISTRESS NOTED. CALL LIGHT AT REACH.
--- NOTE | 2018-12-18 15:42 | NUR ---
Per Nish RN, patient to receive a PICC Line. Plan for D/C to home vs SNF in progress with physicians. CM to follow up.
--- NOTE | 2018-12-18 15:52 | NUR ---
Nutrition Screen Note RD Recommendation for Physician: - Recommend adding 1800 ADA to current diet 2/2 DM Plan of Care: RD following, monitoring for tolerance and adequacy Nutrition reason for involvement: LOS Primary Diagnose(s): dyspnea, fever PMH: CABG, AVR, DM, HTN, CAD, hyperlipidemia Ht: 70 in Wt: 194 lb BMI: 27.8 kg/m2 IBW: [address] Assessment: (12/18) 78 YOM admitted for dyspnea and fever, seen today for LOS. Pt eating lunch at time of visit, reports good appetite and po intake currently and [employer]. Pt denies wt loss, reports UBW of 194#- no wt loss noted. No questions or concerns at time of visit from pt or . Chart reviewed. Labs and meds reviewed, POC Gluc trend noted- hx of DM and no DM diet restriction currently. Will monitor and continue to follow. Current Diet: Cardiac Malnutrition Evaluation (12/18/18) The patient does not meet criteria for a specified degree of malnutrition at this time. Will re-evaluate at follow-up as appropriate. Diet Education Needs Assessment: Diet education not indicated. Diet tolerance: tolerating po Nutrition Care Level: Low Signed: Chelita Nina RD, LD, [facility]
--- NOTE | 2018-12-18 17:18 | NUR ---
Picc tip is in the SVC per radiology report by Dr Mahan. Picc OK to use
--- NOTE | 2018-12-18 17:22 | Diagnostic Imaging Report ---
EXAMINATION: CHEST XRAY LINE PLACEMENT INDICATION: Line placement COMPARISON: Chest CT of 12/12/2018, chest radiograph of 12/12/2018 FINDINGS: LINES/TUBES:Interval placement of right line terminating in the superior vena cava. EKG leads overlie the chest. LUNGS:The lungs are moderately inflated. There is perihilar fullness and indistinctness of the pulmonary vasculature. PLEURA:No pleural effusion or pneumothorax. MEDIASTINUM:Cardiomediastinal silhouette is stably enlarged. BONES/SOFT TISSUES:No acute osseous injury. Median sternotomy wires intact. Partially visualized cervical spine fusion hardware. ABDOMEN:No free air under the diaphragm. IMPRESSION: Right PICC line terminates in the superior vena cava. Mild pulmonary edema and unchanged mild cardiomegaly. Signed by: Amelia Mahan MD on 12/18/2018 5:18 PM
[2018-12-18] MEDS: PANTOPRAZOLE SOD 40 MG TABEC PO SCH (20:34)
[2018-12-18] MEDS: ATORVASTATIN 20 MG TAB PO SCH (20:34)
--- NOTE | 2018-12-18 21:54 | NUR ---
Per radiology right upper arm PICC line ready for use. Both lines flushing well, able to draw back blood. Will discontinue peripheral IV.
--- NOTE | 2018-12-19 00:26 | NUR ---
Notified by lab that vancomycin trough is 21. Will hold 4th dose and notify
[2018-12-19 00:40] VITALS: BP 153/81
[2018-12-19] MEDS: HYDROCODONE/APAP 7.5MG-325MG 1 EA TAB PO SCH ×3 (01:07→10:00)
[2018-12-19] MEDS: CEFEPIME 1GM/NS 0.9% 50 ML 50 ML IV SCH ×2 (03:36→12:13)
--- NOTE | 2018-12-19 04:34 | NUR ---
Patient refusing bed alarm, would like to be able to sit on side of bed. Family at bedside. All safety measures in place. Will continue to monitor.
[2018-12-19] MEDS: LEVOTHYROXINE SODIUM 100 MCG TAB PO SCH (05:08)
[2018-12-19 05:23] VITALS: BP 153/82
--- NOTE | 2018-12-19 07:23 | NUR ---
PATIENT SITTING UP IN BED TALKING TO FAMILY MEMBER, NO COMPLAIN VOICED. DRESSING DRY AND INTACT TO RIGHT INNER THIGH. BED IN LOWER POSITION, CALL LIGHT AT REACH.
[2018-12-19 07:25] VITALS: BP 119/81
[2018-12-19] MEDS: INSULIN LISPRO 100 UNIT/1 ML 3ML VIAL SQ SCH ×4 (07:30→11:30)
--- NOTE | 2018-12-19 08:29 | Progress Note ---
DATE: SUBJECTIVE: The patient is a 78-year-old male, who comes in with infected seroma. No complaints. Feeling better. No chest pain. No shortness of breath. OBJECTIVE: VITAL SIGNS: Temperature is 98.3, pulse of 105, respirations 18, blood pressure is 153/82, pulse oximetry of 95%. HEENT: Normocephalic, atraumatic. Pupils are reactive to light and accommodation. CVS: S1 and S2 normal. Regular rate and rhythm. ABDOMEN: Nontender, nondistended. EXTREMITIES: Right lower extremity with decreased cellulitis, decreased erythema, decreased size of the seroma. No visible discharge present and the vein graft site looks good. LABORATORY VALUES: The patient's chemistries, blood sugars have been running in the 130s to 180s. Labs have been stable yesterday. Toxicology, vancomycin trough was 21 today, has been held. MICROBIOLOGY: Shows Klebsiella pneumoniae with Staph aureus. PLAN: Continue IV antibiotic. The patient can be discharged today on IV antibiotic, has a PICC line. ID to determine antibiotics. Further recommendation per clinical course. We will continue to monitor the patient. MD RAVINDER Barclay/JOSE ELIAS /[id number]
[2018-12-19 08:42] VITALS: BP 119/81
[2018-12-19] MEDS: POLYETHYLENE GLYCOL 3350 17 GM PACK PO SCH (09:00)
[2018-12-19] MEDS: ASPIRIN 325 MG TAB PO SCH (09:11)
[2018-12-19] MEDS: METOPROLOL TARTRATE 50 MG TAB PO SCH (09:12)
[2018-12-19] MEDS: MULTIVITAMINS/MINERALS TAB PO SCH (09:12)
[2018-12-19] MEDS: INSULIN GLARGINE 100 UNITS/ML VIAL SQ SCH (09:17)
--- NOTE | 2018-12-19 11:10 | NUR ---
MD IN TO TALK TO PATIENT ABOUT HOME IV ANTIBIOTIC. OUT OF BED TO CHAIR, CALL LIGHT AT REACH.
[2018-12-19] MEDS: VANCOMYCIN 1GM/NS 250 ML 250 ML IV SCH (11:30)
[2018-12-19 12:07] VITALS: BP 121/82
--- NOTE | 2018-12-19 14:00 | NUR ---
PATIENT DISCHARGED HOME. DISCHARGE INSTRUCTIONS AND FOLLOW UP GIVEN TO PATIENT AND , THEY VERBALIZED UNDERSTANDING. PICC LINE TO RIGHT UPPER ARM REMOVED WITH TIP INTACT. ALL PERSONAL ITEMS TAKEN WITH PATIENT. LEFT UNIT PER WHEEL CHAIR TO FRONT LOBBY IN STABLE CONDITION.
--- NOTE | 2018-12-19 14:03 | NUR ---
explained imm to patient and . verbalized understanding. IMM signed by patient, placed on chart, copy given to patient
== END 2018-12-19 14:40 | disposition home or self-care (01) | DRG 862 ==
LOC: ER 19:57 → ERHOLD 12-13 03:07 → MED/SURG3 12-13 14:11
PROVIDERS: ADMIT Family Medicine; ATTEND Family Medicine
PROC: 02HV33Z Insertion of Infusion Device into Superior Vena Cava, Percutaneous Approach (ICD-10-PCS; principal; 2018-12-18)
PROC: B548ZZA Ultrasonography of Superior Vena Cava, Guidance (ICD-10-PCS; 2018-12-18)
DX: T81.49XA Infection following a procedure, other surgical site, initial encounter (principal); A41.9 Sepsis, unspecified organism; L76.34 Postprocedural seroma of skin and subcutaneous tissue following other procedure; L03.115 Cellulitis of right lower limb; Z16.29 Resistance to other single specified antibiotic; I50.42 Chronic combined systolic (congestive) and diastolic (congestive) heart failure; E11.9 Type 2 diabetes mellitus without complications; M19.90 Unspecified osteoarthritis, unspecified site; E03.9 Hypothyroidism, unspecified; E78.00 Pure hypercholesterolemia, unspecified; B96.1 Klebsiella pneumoniae [K. pneumoniae] as the cause of diseases classified elsewhere; Z95.1 Presence of aortocoronary bypass graft; Z95.2 Presence of prosthetic heart valve; I25.10 Atherosclerotic heart disease of native coronary artery without angina pectoris; Z88.7 Allergy status to serum and vaccine; Z96.643 Presence of artificial hip joint, bilateral; Z90.49 Acquired absence of other specified parts of digestive tract; R53.81 Other malaise; R05 Cough; K59.00 Constipation, unspecified; B95.8 Unspecified staphylococcus as the cause of diseases classified elsewhere; I11.0 Hypertensive heart disease with heart failure; Z79.82 Long term (current) use of aspirin; Z79.4 Long term (current) use of insulin
CPT/HCPCS: 36415; 36569; 71045; 71260; 74470; 76882; 80048; 80053; 80202; 81001; 82550; 82553; 82948; 83518; 83605; 83690; 83880; 84484; 85025; 85379; 87040; 87070; 87071; 87186; 87205; 87400; 93005; 93306; 96372; 97139; 99285; J0692; J1815; J1940; J2405; J3370; J7030; Q9967

== ENCOUNTER → 2019-08-13 | Outpatient (CLI) | payer MEDICARE, BC ==
[~2019-08-13] MED LIST changes: +ASPIRIN325 MG PO; +HUMALOG100 UNIT/1 SQ; +LANTUS 3ML100 UNITS/ SQ; +LIPITOR20 MG PO; +METOPROLOL TART50 MG PO
--- NOTE | 2019-08-13 16:41 | Diagnostic Imaging Report ---
EXAMINATION: THORACIC SPINE 2VW INDICATION: Back pain COMPARISON: None FINDINGS: AP and lateral images of the thoracic spine were obtained. No definite acute osseous injury. Vertebral body heights are preserved. Cervical spine fusion hardware without evidence of location. Moderate multilevel degenerative changes with disc space narrowing and osteophyte formation. The visualized portions of the lungs appear clear. Sternotomy wires in place. Status post cholecystectomy. IMPRESSION: No definite acute osseous injury. 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 Cervical spine fusion hardware. Signed by: Amelia Mahan MD on 08/13/2019 4:37 PM
== END ==
LOC: RAD 09:57
PROVIDERS: ATTEND Family Medicine
DX: M51.84 Other intervertebral disc disorders, thoracic region (principal); M51.17 Intervertebral disc disorders with radiculopathy, lumbosacral region
CPT/HCPCS: 72070

== ENCOUNTER 2022-05-10 07:12 | Emergency (ER) | payer MEDICARE, BC ==
[~2022-05-10] VITALS: Ht 177.8 cm; Wt 92.5 kg
[2022-05-10] MEDS ORDERED: SODIUM CHLORIDE 0.9% 1000ML 1,000 ML IV STA (07:26)
[2022-05-10 07:48] LABS: BASOPHILS % 0.6 % (0.0-1.0); EOSINOPHILS # (AUTO) 0.2 (0.0-0.4); EOSINOPHILS % 2.5 % (0.0-6.0); HEMATOCRIT 42.9 % (38.2-49.6); HEMOGLOBIN 14.1 g/dL (14.0-18.0); LYMPHOCYTES # (AUTO) 1.2 (1.0-3.2); LYMPHOCYTES % 19.2 % (18.0-39.1); MEAN CORPUSCULAR HEMOGLOBIN 29.2 pg (28-32); MEAN CORPUSCULAR HGB CONC 32.9 g/dL (31-35); MEAN CORPUSCULAR VOLUME 88.8 fL (81-99); MONOCYTES # (AUTO) 0.4 (0.2-0.8); MONOCYTES % 6.3 % (4.4-11.3); NEUTROPHILS # (AUTO) 4.5 (2.1-6.9); NEUTROPHILS % 70.9 % (38.7-80.0); PLATELET COUNT 148 x10e3/uL (140-360); RED BLOOD COUNT 4.83 x10e6/uL (4.3-5.7); RED CELL DISTRIBUTION WIDTH 13.5 % (11.7-14.4)
[2022-05-10 07:58] LABS: INR 1.09; PROTHROMBIN TIME 14.6 seconds (11.9-14.5)
[2022-05-10 08:08] LABS: ALBUMIN/GLOBULIN RATIO 1.6 (0.8-2.0); ANION GAP 15.1 mmol/L (8-16); CALCIUM 9.3 mg/dL (8.4-10.2); CREATININE, SERUM 0.83 mg/dL (0.72-1.25); POTASSIUM 4.1 mmol/L (3.5-5.1)
[2022-05-10] MEDS ORDERED: LIDOCAINE HCL 1% LOCAL INJ 20 ML VIAL ONE (08:24)
[2022-05-10] MEDS ORDERED: IOPAMIDOL 370 MG/ML 100 ML INFUS..BTL INJ ONE (08:42)
[2022-05-10 10:44] VITALS: BP 128/73
== END 2022-05-10 10:40 | disposition home or self-care (01) ==
LOC: ER 07:18
DX: S32.511A Fracture of superior rim of right pubis, initial encounter for closed fracture (principal); M25.511 Pain in right shoulder; S50.311A Abrasion of right elbow, initial encounter; S30.1XXA Contusion of abdominal wall, initial encounter; W18.39XA Other fall on same level, initial encounter; Y92.89 Other specified places as the place of occurrence of the external cause; I10 Essential (primary) hypertension; E11.9 Type 2 diabetes mellitus without complications; Z95.4 Presence of other heart-valve replacement
CPT/HCPCS: 36415; 70450; 72125; 73030; 73562; 73700; 74177; 80053; 85025; 85610; 85730; 99284; J2001; J7030; Q9967

== ENCOUNTER 2024-02-12 08:40 | Emergency (ER) | payer MEDICARE, BC ==
[~2024-02-12] VITALS: Ht 177.8 cm; Wt 92.5 kg
[2024-02-12 09:01] VITALS: PULSE 78; RESP 18; TEMP 98.2; O2SAT 100
[2024-02-12 09:24] LABS: BASOPHILS % 0.8 % (0.0-1.0); EOSINOPHILS # (AUTO) 0.2 (0.0-0.4); HEMATOCRIT 42.6 % (38.2-49.6); HEMOGLOBIN 13.5 g/dL (14.0-18.0); LYMPHOCYTES # (AUTO) 1.3 (1.0-3.2); LYMPHOCYTES % 24.9 % (18.0-39.1); MEAN CORPUSCULAR HEMOGLOBIN 29.3 pg (28-32); MEAN CORPUSCULAR HGB CONC 31.7 g/dL (31-35); MEAN CORPUSCULAR VOLUME 92.4 fL (81-99); MONOCYTES # (AUTO) 0.3 (0.2-0.8); MONOCYTES % 5.7 % (4.4-11.3); NEUTROPHILS # (AUTO) 3.4 (2.1-6.9); NEUTROPHILS % 65.2 % (38.7-80.0); PLATELET COUNT 152 x10e3/uL (140-360); RED BLOOD COUNT 4.61 x10e6/uL (4.3-5.7); RED CELL DISTRIBUTION WIDTH 13.5 % (11.7-14.4); WHITE BLOOD COUNT 5.27 x10e3/uL (4.8-10.8)
[2024-02-12 09:47] LABS: ALBUMIN/GLOBULIN RATIO 1.6 (0.8-2.0); ANION GAP 12.3 mmol/L (8-16); BILIRUBIN,TOTAL 0.5 mg/dL (0.2-1.2); CALCIUM 9.2 mg/dL (8.4-10.2); CREATININE, SERUM 0.86 mg/dL (0.72-1.25); POTASSIUM 4.3 mmol/L (3.5-5.1); TOTAL PROTEIN 6.5 g/dL (6.5-8.1)
[2024-02-12] MEDS ORDERED: AMOX TR-K CLV1 EAC2 PO (10:22)
[2024-02-12] MEDS ORDERED: MECLIZINE HCL12.5 MG PO (10:22)
== END 2024-02-12 10:00 | disposition home or self-care (01) ==
LOC: ER 08:50
DX: R42 Dizziness and giddiness (principal); J32.9 Chronic sinusitis, unspecified; E11.65 Type 2 diabetes mellitus with hyperglycemia; I10 Essential (primary) hypertension; R94.31 Abnormal electrocardiogram [ECG] [EKG]; Z95.1 Presence of aortocoronary bypass graft; Z95.4 Presence of other heart-valve replacement
CPT/HCPCS: 36415; 70450; 80053; 84484; 85025; 93005; 99284

== ENCOUNTER → 2024-04-11 | Day surgery (SDC) | payer MEDICARE, BC ==
[2024-04-10 09:00] LABS: BASOPHILS % 0.5 % (0.0-1.0); EOSINOPHILS # (AUTO) 0.2 (0.0-0.4); EOSINOPHILS % 2.7 % (0.0-6.0); HEMATOCRIT 41.9 % (38.2-49.6); LYMPHOCYTES # (AUTO) 1.3 (1.0-3.2); MEAN CORPUSCULAR HEMOGLOBIN 29.9 pg (28-32); MEAN CORPUSCULAR HGB CONC 33.4 g/dL (31-35); MEAN CORPUSCULAR VOLUME 89.5 fL (81-99); MONOCYTES # (AUTO) 0.4 (0.2-0.8); MONOCYTES % 5.4 % (4.4-11.3); NEUTROPHILS # (AUTO) 5.6 (2.1-6.9); NEUTROPHILS % 73.9 % (38.7-80.0); PLATELET COUNT 173 x10e3/uL (140-360); RED BLOOD COUNT 4.68 x10e6/uL (4.3-5.7); RED CELL DISTRIBUTION WIDTH 13.2 % (11.7-14.4); WHITE BLOOD COUNT 7.64 x10e3/uL (4.8-10.8)
[2024-04-10 09:24] LABS: INR 0.97; PROTHROMBIN TIME 13.5 seconds (11.9-14.5)
[2024-04-10 09:25] LABS: PARTIAL THROMBOPLASTIN TIME 34.7 seconds (23.8-35.5)
[2024-04-10 09:31] LABS: ANION GAP 15.2 mmol/L (8-16); CALCIUM 9.8 mg/dL (8.4-10.2); CREATININE, SERUM 0.82 mg/dL (0.72-1.25); POTASSIUM 4.2 mmol/L (3.5-5.1)
[~2024-04-11] MED LIST changes: +ACETAMINOPHEN 1000 MG/100 ML 100 ML IV ONE; +AMOX TR-K CLV1 EAC2 PO; +DEXAMETHASONE SOD PHOS INJ 4 MG/ML SDV ONE; +FENTANYL CITRATE/PF 100MCG/2 ML INJ ONE; +FLOMAX0.4 MG PO; +HYDROCODON-ACE1 EA12 PO; +LIDOCAINE HCL 2% LOCAL INJ 5 ML SDV VIAL INJ ONE; +LISINOPRIL2.5 MG PO; +MECLIZINE HCL12.5 MG PO; +MEN'S 50 PLUS1 EACH PO; +NEXIUM40 MG PO; +NUTRIFERON PO; +ONDANSETRON HCL INJ 2MG/ML 2ML 2 MG/ML VIAL ONE; +PRESERVISION A1 EAC5 PO; +PROPOFOL IV EMULSION 10 MG/ML 20 ML VIAL ONE; +SEVOFLURANE INHAL SOLN 250 ML PEN BTL ONE; +VITAMIN D31250 MCG PO
[2024-04-11] MEDS: LACTATED RINGER'S 1,000 ML ONE (06:08)
[2024-04-11] MEDS: CEFAZOLIN SODIUM 2 GM ONE (06:09)
[2024-04-11 08:50] VITALS: TEMP 97.2
[2024-04-11 10:00] VITALS: BP 138/71; PULSE 61; RESP 18; O2SAT 97
== END | disposition home or self-care (01) ==
LOC: OR 05:14
PROVIDERS: ATTEND Neurological Surgery
DX: G56.02 Carpal tunnel syndrome, left upper limb (principal); E11.9 Type 2 diabetes mellitus without complications; I25.10 Atherosclerotic heart disease of native coronary artery without angina pectoris; E03.9 Hypothyroidism, unspecified; I10 Essential (primary) hypertension; K21.9 Gastro-esophageal reflux disease without esophagitis; Z88.7 Allergy status to serum and vaccine; Z01.812 Encounter for preprocedural laboratory examination; Z01.818 Encounter for other preprocedural examination; Z79.82 Long term (current) use of aspirin; Z79.4 Long term (current) use of insulin; Z95.2 Presence of prosthetic heart valve
CPT/HCPCS: 36415; 64721; 71046; 80048; 85025; 85610; 85730; J0131; J1100; J2003; J2405; J2704; J3010; J7121